=== PATIENT | male | born 2000 | race Caucasian/White ===

== ENCOUNTER 2021-06-20 14:36 | Emergency (ER) | payer OTHER ==
[~2021-06-20] VITALS: Ht 165.1 cm; Wt 53.0 kg
[2021-06-20] MEDS ORDERED: ONDANSETRON PF 4 MG/2 ML VIAL. IVP ONE ×2 (15:30→18:00)
[2021-06-20] MEDS ORDERED: IV RINGERS SOLUTION,LACTATED 1,000 ML IV ONE ×2 (15:30→18:15)
[2021-06-20] MEDS ORDERED: FAMOTIDINE 20 MG/2 ML VIAL IVP ONE (15:30)
[2021-06-20 16:18] LABS: BASO % 0 % (0-3); EOS # 0.2 x10^3/uL (0.0-0.7); EOS % 1 % (0-3); HEMATOCRIT 47.1 % (39.0-53.0); HEMOGLOBIN 15.4 g/dL (13.0-17.5); LYMPH % 7 % (24-48); MEAN CORPUSCULAR HEMOGLOBIN 30 pg (25-35); MEAN CORPUSCULAR HGB CONC 33 g/dL (31-37); MEAN CORPUSCULAR VOLUME 90 fL (79-100); MONO # 0.7 x10^3/uL (0.0-1.1); MONO % 5 % (0-9); NEUT # 11.8 x10^3uL (1.8-7.7); NEUT % 86 % (31-73); PLATELET COUNT 264 x10^3/uL (140-400); RED BLOOD COUNT 5.22 x10^6/uL (4.30-5.70); WHITE BLOOD COUNT 13.7 x10^3/uL (4.0-11.0)
[2021-06-20 16:24] LABS: CALCIUM 10.2 mg/dL (8.5-10.1); CREATININE 0.8 mg/dL (0.7-1.3); GFR 123.2; POTASSIUM 4.6 mmol/L (3.5-5.1)
[2021-06-20 16:29] LABS: ALBUMIN 4.7 g/dL (3.4-5.0); ALBUMIN/GLOBULIN RATIO 1.4 (1.0-1.7); MAGNESIUM 2.3 mg/dL (1.8-2.4); TOTAL BILIRUBIN 1.7 mg/dL (0.2-1.0)
--- NOTE | 2021-06-20 17:35 | PHYS DOC ---
Past History Additional Past Medical Histor: insomnia (JOHANNA VENTURA) Past Surgical History: No Surgical History (JOHANNA VENTURA) General Adult EDM: Chief Complaint: DIARRHEA HPI: HPI: Patient is an otherwise healthy 20-year-old male who presents with 1 day history of vomiting and diarrhea. Patient states he has had 3 episodes of emesis and at least 5 episodes of diarrhea beginning today. He denies any sick contacts or recent ingestion of new foods. Patient reports associated diffuse abdominal pain that is mild and chills. He states his girlfriend told him that while he was sleeping last night, he was cool to the touch but sweating. Patient denies measured fever, bloody emesis, bloody stools. (JOHANNA VENTURA) Review of Systems: Review of Systems: ROS negative or noncontributory except as mentioned in HPI. (JOHANNA VENTURA) Current Medications: Current Meds: Current Medications Medications (Trade) Dose Ordered Sig/Lima Start Time Stop Time Status Last Admin Dose Admin Famotidine (Pepcid Vial) 20 mg 1X ONCE 06/20/21 15:30 06/20/21 15:31 DC 06/20/21 15:30 20 MG Lactated Ringer's 1,000 ml @ 1,000 mls/hr 1X ONCE 06/20/21 15:30 06/20/21 16:29 DC 06/20/21 15:30 1,000 MLS/HR Ondansetron HCl (Zofran) 4 mg 1X ONCE 06/20/21 15:30 06/20/21 15:31 DC 06/20/21 15:44 4 MG (JOHANNA VENTURA) Allergies: Allergies: Allergies Coded Allergies Type Severity Reaction Last Updated Verified No Known Drug Allergies 06/20/21 No (JOHANNA VENTURA) Physical Exam: PE: Constitutional: Well developed, well nourished, no acute distress, non-toxic appearance. HENT: Normocephalic, atraumatic, bilateral external ears normal, oropharynx moist, nose normal. Eyes: EOMI, conjunctiva normal, no discharge. Neck: Normal range of motion, no stridor. Abdomen: Bowel sounds normal, soft, no tenderness, no masses, no pulsatile masses. Skin: Warm, dry, no erythema, no rash, good skin turgor. Extremities: No cyanosis, no clubbing, ROM intact, no edema. Neurologic: Alert and oriented x4, normal motor function, normal sensory function, and symmetrical upright gait, no focal deficits noted. (JOHANNA VENTURA) Current Patient Data: Labs: Laboratory Tests Test 06/20/21 15:42 White Blood Count 13.7 x10^3/uL (4.0-11.0) H Red Blood Count 5.22 x10^6/uL (4.30-5.70) Hemoglobin 15.4 g/dL (13.0-17.5) Hematocrit 47.1 % (39.0-53.0) Mean Corpuscular Volume 90 fL (79-100) Mean Corpuscular Hemoglobin 30 pg (25-35) Mean Corpuscular Hemoglobin Concent 33 g/dL (31-37) Red Cell Distribution Width 14.0 % (11.5-14.5) Platelet Count 264 x10^3/uL (140-400) Neutrophils (%) (Auto) 86 % (31-73) H Lymphocytes (%) (Auto) 7 % (24-48) L Monocytes (%) (Auto) 5 % (0-9) Eosinophils (%) (Auto) 1 % (0-3) Basophils (%) (Auto) 0 % (0-3) Neutrophils # (Auto) 11.8 x10^3uL (1.8-7.7) H Lymphocytes # (Auto) 1.0 x10^3/uL (1.0-4.8) Monocytes # (Auto) 0.7 x10^3/uL (0.0-1.1) Eosinophils # (Auto) 0.2 x10^3/uL (0.0-0.7) Basophils # (Auto) 0.0 x10^3/uL (0.0-0.2) Sodium Level 135 mmol/L (136-145) L Potassium Level 4.6 mmol/L (3.5-5.1) Chloride Level 102 mmol/L (98-107) Carbon Dioxide Level 25 mmol/L (21-32) Anion Gap 8 (6-14) Blood Urea Nitrogen 14 mg/dL (8-26) Creatinine 0.8 mg/dL (0.7-1.3) Estimated GFR (Cockcroft-Gault) 123.2 BUN/Creatinine Ratio 18 (6-20) Glucose Level 81 mg/dL (70-99) Calcium Level 10.2 mg/dL (8.5-10.1) H Magnesium Level 2.3 mg/dL (1.8-2.4) Total Bilirubin 1.7 mg/dL (0.2-1.0) H Aspartate Amino Transferase (AST) 23 U/L (15-37) Alanine Aminotransferase (ALT) 26 U/L (16-63) Alkaline Phosphatase 79 U/L (46-116) Total Protein 8.0 g/dL (6.4-8.2) Albumin 4.7 g/dL (3.4-5.0) Albumin/Globulin Ratio 1.4 (1.0-1.7) Lipase 302 U/L (73-393) Vital Signs: Vital Signs Date Time Temp Pulse Resp B/P (MAP) Pulse Ox O2 Delivery O2 Flow Rate FiO2 06/20/21 19:04 78 16 137/79 (98) 98 Room Air 06/20/21 14:49 98.0 85 18 141/101 (114) 98 Room Air (JOHANNA VENTURA) Heart Score: C/O Chest Pain: No (JOHANNA VENTURA) Course & Med Decision Making: Course & Med Decision Making Pertinent Labs and Imaging studies reviewed. (See chart for details) Patient is a 20-year-old male who presents with 1 day history of vomiting and diarrhea. His symptoms were well controlled here in the department with Zofran and IV fluid administration. Additionally, he is able to produce urine indicating he is not severely dehydrated requiring inpatient rehydration. Patient was provided with prescription for Zofran. Return precautions were provided. Patient understands and is agreeable to discharge plan. (JOHANNA VENTURA) Dragon Disclaimer: Dragon Disclaimer: This electronic medical record was generated, in whole or in part, using a voice recognition dictation system. (JOHANNA VENTURA) Attending Co-Sign The patient was seen and interviewed as well as examined at the bedside. The [facility] rt was reviewed. The case was discussed. Agree with the plan of care. (SOLA HERNANDEZ DO) Departure Departure: Impression: Primary Impression: Gastroenteritis Disposition: 01 HOME / SELF CARE / HOMELESS Condition: IMPROVED Referrals: PCP,UNKNOWN (PCP) Patient Instructions: Diarrhea, Mfug-gr-[id number], Nausea and Vomiting, Tean-sm-Gxhn, Viral Gastroenteritis, Hafl-xp-Ttdw Additional Instructions: EMERGENCY DEPARTMENT GENERAL DISCHARGE INSTRUCTIONS Thank you for coming to [facility] (ED) today and trusting us with you care. We trust that you had a positive experience in our Emergency Department. If you wish to speak to the department management, you may call the director at [phone]. YOUR FOLLOW UP INSTRUCTIONS ARE FOLLOWS: 1. Follow up with your primary care doctor. If you do not have a primary doctor, please ask for a resource list of physicians or clinics that may be able to assist you with follow up care. 2. The emergency provider has interpreted your imaging studies, if any were ordered. The radiology sales development specialist also reviewed them. If there is a change in the findings, you will be notified in 48 hours when at all possible. 3. If a lab test or culture has been done, your results will be reviewed and you will be notified if you need a change in treatment. 4. Follow instructions verbalized to you and refer to the printouts if needed. ADDITIONAL INSTRUCTIONS AND INFORMATION: 1. Your care today has been supervised by a physician who is specially trained in emergency care. Many problems require more than one evaluation for a comple te diagnosis and treatment. We recommend that you schedule your follow up appointment as recommended to ensure complete treatment of you illness or injury. If you are unable to obtain follow up care and continue to have a problem, or if your condition worsens, we recommend that you return to the ED. 2. We are not able to safely determine your condition over the phone nor are we able to give sound medical advice over the phone. For these safety reasons, if you call for medical advice we will ask you to come to the ED for further evaluation. 3. If you have any questions regarding these discharge instructions please call the ED at [phone]. SAFETY INFORMATION: In the interest of safety, wellness, and injury prevention; we encourage you to wear your seat belt, if you smoke; quite smoking, and we encourage family to use a protective helmet for bicycling and other sporting events that present an increased risk for head injury. IF YOUR SYMPTOMS WORSEN OR NEW SYMPTOMS DEVELOP, OR YOU HAVE CONCERNS ABOUT YOUR CONDITION; OR IF YOUR CONDITION WORSENS WHILE YOU ARE WAITING FOR YOUR FOLLOW UP APPOINTMENT; EITHER CONTACT YOUR PRIMARY CARE DOCTOR, THE PHYSICIAN WHOSE NAME AND NUMBER YOU WERE GIVEN, OR RETURN TO THE ED IMMEDIATELY. Scripts Ondansetron (ONDANSETRON ODT) 4 Mg Tab.rapdis 1 TAB PO PRN Q6-8HRS for n/v, #20 TAB Prov: JOHANNA VENTURA 06/20/21 JOHANNA VENTURA Jun 20, 2021 17:35 SOLA HERNANDEZ DO Jun 21, 2021 18:24
[2021-06-20 18:56] LABS: BACTERIA,URINE 0 /HPF (0-FEW); CLARITY,URINE CLEAR; COLOR,URINE YELLOW; GLUCOSE,URINE NEG (NEG); NITRITE,URINE NEG (NEG); RBC,URINE 0 /HPF (0-2); SQUAMOUS EPITHELIAL CELL,UR OCC /LPF; UROBILINOGEN,URINE 0.2 mg/dL (0.2 mg/dL); WBC,URINE RARE /HPF (0-4)
[2021-06-20] MEDS ORDERED: ONDA4TAB12 PO (18:58)
[2021-06-20 19:04] VITALS: BP 137/79
== END 2021-06-20 19:15 | disposition home or self-care (01) ==
LOC: ER 14:36
DX: K52.9 Noninfective gastroenteritis and colitis, unspecified (principal)
CPT/HCPCS: 36415; 80053; 81001; 83690; 83735; 85025; 96361; 96374; 96375; 96376; 99284; J2405; J3490; J7120

== ENCOUNTER 2021-07-03 02:30 | Emergency (ER) | payer OTHER ==
[~2021-07-03] VITALS: Ht 165.1 cm; Wt 54.3 kg
[~2021-07-03 02:30] MED LIST: ONDA4TAB12 PO
[2021-07-03] MEDS ORDERED: ERYTHROMYCIN 0.5% OPHTH OINTMENT 1GM TUBE. ONE (03:16)
[2021-07-03] MEDS ORDERED: GENTAMICIN 0.3% OPHTH OINTMENT 3.5GM TUBE. OU ONE (03:30)
[2021-07-03 03:34] LABS: BGAS PH 7.05 (7.35-7.46)
[2021-07-03] MEDS ORDERED: CONTRAST GIVEN. MC PRN (03:45)
[2021-07-03 03:50] VITALS: BP 162/98
--- NOTE | 2021-07-03 03:53 | RAD ---
EXAM: AP View of the chest DATE: 07/03/2021 2:58 AM INDICATION: Reason: TRAUMA / Spl. Instructions: / History: COMPARISON: No Prior FINDINGS: ET tube tip terminates approximately 3 cm above the reyna. Enteric tube is looped distally with tip projecting over the expected body of the stomach. The heart is not enlarged. Right perihilar and medial right lung base airspace opacities possibly atelectasis, contusion or cons olidative process such as pneumonia. No pleural effusion or pneumothorax. IMPRESSION: Right perihilar and medial right lung base airspace opacities possibly atelectasis, contusion or cons olidative process such as pneumonia. Electronically signed by: David Tee MD (07/03/2021 3:50 AM) SARTHAK
--- NOTE | 2021-07-03 03:58 | PHYS DOC ---
Past History Additional Past Medical Histor: insomnia Past Surgical History: No Surgical History Alcohol Use: None General Adult EDM: Chief Complaint: CPR/FULL ARREST HPI: HPI: - Pt. non-responsive.- ".. We had an argument earlier...I am his girl friend... We are both from [place].... I went to take a shower... and when I came out... he was hanging in the closet... He was all blue in his face and ears.. I got the belt off him.. and put him on the floor.. and started CPR.. and call the ambulance...He had some problems recently with depression and insomnia.. .. was taking trazodone for sleep.. He just had recent complained of stomach flu last couple days.. 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 Pt. was unobserved for 20 min. by girl friend. Pt. was coded by paramedics. IO Lt tibia. Intubated at scene. Pt. loss air way in move, then oral intubation tube placed. Pt. had CPR resuscitation in route with 3 epi given in field. Pt. had short return of pulse, but again asystole. Pt. developed rhythm on monitor while CPR was continued. Eventually patient did develop a pulse after 2 epinephrines IV. Patient been intubated with inline stabilization by nursing. . Patient past medical hx. insomnia-took trazodone for sleep. Sgt. of Pt. notified at [address] [facility] Jordyn [phone] labs order, CT Head, Neck, Chest pending. CXR shows Rt. aspiration, edema, adequate ET and OG placement. Father notified at . Mother could not be reached t . Father stated he would try to reach her. Pt. girl friend is Jacinto Shahid . Review of Systems: Review of Systems: Unable to complete due presentation Family History: Family History: Not currently available Current Medications: Current Meds: Current Medications Medications (Trade) Dose Ordered Sig/Lima Start Time Stop Time Status Last Admin Dose Admin Erythromycin (Romycin) 0.25 inch 1X ONCE 07/03/21 03:30 07/03/21 03:31 UNV Gentamicin Sulfate (Gentak) 0.25 inch 1X ONCE 07/03/21 03:30 07/03/21 03:31 Lactated Ringer's 1,000 ml @ 160 mls/hr Q6H15M 07/03/21 03:30 07/03/21 09:44 UNV Allergies: Allergies: Allergies Coded Allergies Type Severity Reaction Last Updated Verified No Known Drug Allergies 06/20/21 No Physical Exam: PE: Constitutional: Well developed, well nourished,in acute distress HENT: Normocephalic,, bilateral external ears normal, oropharynx moist, oral bleeding, nose normal. Bleeding from esophagus and trachea area.. Cords extremely swollen. . Appeared to have aspirated. Eyes ; Fixed and dilated Neck: Ligature flores around the neck. Swollen neck. Trachea did appear however midline. No step-offs on posterior neck. Cardiovascular: Tachycardia heart rate regular rhythm, no murmur [] Lungs & Thorax: Bilateral breath sounds coarse breath sounds more prevalent on right Abdomen: Mild distention, no bowel sounds. Circumcised. Skin: Cyanosis peripherally, pale. Excoriations on left thigh. Excoriations both shoulders Back: No obvious injury Extremities:no edema. Blood under bilateral nails and on fingers Neurologic: Nonresponsive. Bilateral disc edema. EKG: EKG: My interpretation EKG shows a sinus tachycardia 118 bpm. Does have some right axis findings but no findings of acute STEMI of contralateral changes. Time of EKG is 325 hours [] Radiology/Procedures: Radiology/Procedures: IMAGING REPORT Signed PATIENT: CESAR VARGAS ACCOUNT: [id number] : 2000 LOCATION: ER AGE: 20 SEX: M EXAM STATUS: REG ER ORD. PHYSICIAN: ALEX ZARCO MD REASON: TRAUMA PROCEDURE: CT HEAD AND CERVICAL SPINE WO EXAM: CT HEAD WITHOUT IV CONTRAST CLINICAL HISTORY: Reason: TRAUMA / Spl. Instructions: / History: COMPARISON: None. TECHNIQUE: Routine CT of the head without contrast. Soft tissues and bone windows were reviewed. PQRS compliance statement - One or more of the following individualized dose reduction techniques were utilized for this study: 1. Automated exposure control 2. Adjustment of the mA and/or kV according to patient size 3. Use of iterative reconstruction technique FINDINGS: Findings of cerebral edema with limited differentiation of the carlos-white matter and basal ganglia may be seen along the spectrum of hypoxic-ischemic injury. Near-complete effacement of the ventricular system. There is crowding of the basilar cisterns. High density of the cerebral arteries and dural venous sinuses possibly artifactual although thrombosis could have this appearance. The calvarium demonstrates no evidence of fracture or focal lesion. There is normal aeration of the visualized paranasal sinuses and mastoid air cells. The visualized portions of the orbits are normal. IMPRESSION: Changes of cerebral edema likely from hypoxic ischemic injury. High density within the cerebral arteries and venous sinuses, likely artifactual but can also be seen with associated thrombosis. EXAM: CT CERVICAL SPINE WITHOUT IV CONTRAST CLINICAL HISTORY: Reason: TRAUMA / Spl. Instructions: / History: COMPARISON: None available. TECHNIQUE: Helical CT of the cervical spine was performed. Axial, coronal and sagittal reformatted images were also performed. PQRS compliance statement - One or more of the following individualized dose reduction techniques were utilized for this study: 1. Automated exposure control 2. Adjustment of the mA and/or kV according to patient size 3. Use of iterative reconstruction technique FINDINGS: Vertebral body heights are preserved. No spondylolisthesis. Intervertebral disc heights are preserved. Please see dedicated CT chest findings for lung findings. IMPRESSION: No acute cervical spine fracture or subluxation Findings discussed with ALEX ZARCO MD at 07/03/2021 4:32 AM. FOR INTERNAL CODING PURPOSES RESULT CODE: (C) Electronically signed by: David Alonzo MD (07/03/2021 4:39 AM) [id number] [address] [place] [id number] IMAGING REPORT Signed PATIENT: CESAR VARGAS ACCOUNT: [id number] : 2000 LOCATION: ER AGE: 20 SEX: M EXAM STATUS: REG ER ORD. PHYSICIAN: ALEX ZARCO MD REASON: HANGING PROCEDURE: CT CHEST WO/W CONTRAST EXAM: CT Chest with IV contrast CLINICAL HISTORY: Reason: HANGING. Shortness of air. Abnormality in prior chest radiograph. COMPARISON: 07/03/2021 TECHNIQUE: CT of the chest following the administration of intravenous contrast. Axial, coronal and sagittal reformatted images were generated. ---PQRS compliance statement - One or more of the following individualized dose reduction techniques were utilized for this study: 1. Automated exposure control 2. Adjustment of the mA and/or kV according to patient size 3. Use of iterative reconstruction technique--- FINDINGS: CHEST: ET tube tip terminates within the distal thoracic trachea. Enteric tube tip is not seen but extends at least to the body of the stomach. Heart is not enlarged. No pericardial effusion. No pleural effusion. No pneumothorax. Anterior mediastinal soft tissue density likely thymus. Airspace opacities in the perihilar region and lower lobes bilaterally suspicious for aspiration. No mediastinal or hilar lymphadenopathy. No axillary lymphadenopathy. Visualized Upper abdomen: Grossly unremarkable Bones: Trace cortical offset at the anterior aspect of the left fourth fifth and sixth rib suspicious for age-indeterminate fracture, possibly chronic. IMPRESSION: 1. Perihilar and lower lobe airspace opacities suspicious for aspiration. Consolidative process such as pneumonia could also have this appearance. 2. Trace cortical offset at the anterior aspect of the left fourth, fifth and sixth rib suspicious for age-indeterminate fracture, possibly chronic. Electronically signed by: David Alonzo MD (07/03/2021 4:42 AM) [facility] DICTATED AND SIGNED BY: DAVID ALONZO MD DATE: 07/03/21 0439 CC: ALEX ZARCO MD; PCP,UNKNOWN ~ [][place] [address] IMAGING REPORT Signed PATIENT: CESAR VARGAS ACCOUNT: [id number] : 2000 LOCATION: ER AGE: 20 SEX: M EXAM STATUS: REG ER ORD. PHYSICIAN: ALEX ZARCO MD REASON: TRAUMA PROCEDURE: CHEST AP ONLY EXAM: AP View of the chest DATE: 07/03/2021 2:58 AM INDICATION: Reason: TRAUMA / Spl. Instructions: / History: COMPARISON: No Prior FINDINGS: ET tube tip terminates approximately 3 cm above the reyna. Enteric tube is looped distally with tip projecting over the expected body of the stomach. The heart is not enlarged. Right perihilar and medial right lung base airspace opacities possibly atelectasis, contusion or consolidative process such as pneumonia. No pleural effusion or pneumothorax. IMPRESSION: Right perihilar and medial right lung base airspace opacities possibly atelectasis, contusion or consolidative process such as pneumonia. Electronically signed by: David Alonzo MD (07/03/2021 3:50 AM) [facility] DICTATED AND SIGNED BY: DAVID ALONZO MD DATE: 07/03/21348 CC: ALEX ZARCO MD; PCP,UNKNOWN ~ Heart Score: C/O Chest Pain: N/A HEART Score for Chest Pain: HEART Score for Chest Pain Response (Comments) Value History Slighlty/Non-Suspicious 0 ECG Normal 0 Age < 45 0 Risk Factors 1 or 2 Risk Factors 1 Troponin >3 x Normal Limit 2 Total 3 Risk Factors: Risk Factors: DM, Current or recent (<one month) smoker, HTN, HLP, family history of CAD, obesity. Risk Scores: Score 0 - 3: 2.5% MACE over next 6 weeks - Discharge Home Score 4 - 6: 20.3% MACE over next 6 weeks - Admit for Clinical Observation Score 7 - 10: 72.7% MACE over next 6 weeks - Early Invasive Strategies Course & Med Decision Making: Course & Med Decision Making Pertinent Labs and Imaging studies reviewed. (See chart for details) Procedure note-emergent intubation-protection of airway. And OG placement- Patient did not require sedation because he was nonresponsive- Mallampati score was 1, but limited movement because of the potential neck injury. Airway obstructed by bleeding and aspiration. Inline stabilization with nursing. Oral airway suction. Oral airway removed. Airway suctioned. 1 attempt with a 7.5 tube would not pass between edematous cords with videoscope. Patient reventilated attempt with a 7.0 tube -was able to pass tube . Had CO2 change. Breath sounds bilaterally no breath sounds over stomach. Good saturation. OG placed with return of gastric contents and position verified by auscultation. Endotracheal tube and NG placement verified by chest x-ray. Stomach decompressed with suction. Hard collar to replace soft collar after stabilization of air way. Critical care 120 minutes Discussed pt. presentation, testing and tx. plan with Dr. Martinez. Will accept.at ICU- [facility] Impression: 1. Hanging 2. Cardiopulmonary Arrest-- Suspect Anoxia 3. Scratch Flores both shoulder and Lt Thight 4. Leukocytosis 19.7 5. Aspiration pneumonitis- 6. Elevated Trop. 417 7. Elevated Glucose 451 8. Elevated AST 97 and ALT 105 9. Cerebral Edema 10Metabolic Acidosis 11Morbid Prognosis See Code sheet for details. [] Dragon Disclaimer: Dragon Disclaimer: This electronic medical record was generated, in whole or in part, using a voice recognition dictation system. Departure Departure: Referrals: PCP,UNKNOWN (PCP) Brandon Disclaimer This chart was dictated in whole or in part using Voice Recognition software in a busy, high-work load, and often noisy Emergency Department environment. It may contain unintended and wholly unrecognized errors or omissions. ALEX ZARCO MD Jul 03, 2021 03:58
[2021-07-03] MEDS ORDERED: IOHEXOL 350 MG/ML 100 ML VIAL. IV ONE (04:00)
[2021-07-03] MEDS ORDERED: EPINEPHrine SYRINGE 1 MG/10 ML SYRINGE. IV ONE ×2 (04:00)
[2021-07-03] MEDS ORDERED: ERYTHROMYCIN 0.5% OPHTH OINTMENT 1GM TUBE. OU ONE (04:00)
[2021-07-03] MEDS ORDERED: EPINEPHrine SYRINGE 1 MG/10 ML SYRINGE. ONE (04:00)
[2021-07-03] MEDS ORDERED: IV RINGERS SOLUTION,LACTATED 1,000 ML IV ONE (04:00)
[2021-07-03] MEDS ORDERED: IV RINGERS SOLUTION,LACTATED 1,000 ML IV SCH ×2 (04:00→06:15)
[2021-07-03 04:03] LABS: BASO # 0.1 x10^3/uL (0.0-0.2); BASO % 1 % (0-3); EOS # 0.3 x10^3/uL (0.0-0.7); EOS % 2 % (0-3); HEMATOCRIT 44.1 % (39.0-53.0); HEMOGLOBIN 13.1 g/dL (13.0-17.5); LYMPH # 6.1 x10^3/uL (1.0-4.8); LYMPH % 31 % (24-48); MEAN CORPUSCULAR HEMOGLOBIN 30 pg (25-35); MEAN CORPUSCULAR HGB CONC 30 g/dL (31-37); MEAN CORPUSCULAR VOLUME 100 fL (79-100); MONO # 0.4 x10^3/uL (0.0-1.1); MONO % 2 % (0-9); NEUT # 12.8 x10^3uL (1.8-7.7); NEUT % 65 % (31-73); PLATELET COUNT 239 x10^3/uL (140-400); RED BLOOD COUNT 4.42 x10^6/uL (4.30-5.70); RED CELL DISTRIBUTION WIDTH 14.5 % (11.5-14.5); WHITE BLOOD COUNT 19.7 x10^3/uL (4.0-11.0)
[2021-07-03 04:33] LABS: ALBUMIN 3.4 g/dL (3.4-5.0); CALCIUM 9.4 mg/dL (8.5-10.1); CREATININE 1.7 mg/dL (0.7-1.3); DIRECT BILIRUBIN 0.1 mg/dL (0.0-0.2); GFR 51.6; MAGNESIUM 2.5 mg/dL (1.8-2.4); POTASSIUM 4.8 mmol/L (3.5-5.1); TOTAL BILIRUBIN 0.5 mg/dL (0.2-1.0); TOTAL PROTEIN 6.1 g/dL (6.4-8.2)
[2021-07-03 04:34] LABS: % BANDS 1 % (0-9); % EOS 1 % (0-5); % LYMPHS 31 % (24-48); % MONOS 3 % (0-10); % SEGS 64 % (35-66)
[2021-07-03 04:36] LABS: ANISOCYTOSIS PRESENT; PLT ESTIMATE ADEQUATE (ADEQUATE)
--- NOTE | 2021-07-03 04:42 | RAD ---
EXAM: CT HEAD WITHOUT IV CONTRAST CLINICAL HISTORY: Reason: TRAUMA / Spl. Instructions: / History: COMPARISON: None. TECHNIQUE: Routine CT of the head without contrast. Soft tissues and bone windows were reviewed. PQRS compliance statement - One or more of the following individualized dose reduction techniques wer e utilized for this study: 1. Automated exposure control 2. Adjustment of the mA and/or kV according to patient size 3. Use of iterative reconstruction technique FINDINGS: Findings of cerebral edema with limited differentiation of the carlos-white matter and basal ganglia ma y be seen along the spectrum of hypoxic-ischemic injury. Near-complete effacement of the ventricular system. There is crowding of the basilar cisterns. High density of the cerebral arteries and dural venous sinuses possibly artifactual although thrombos is could have this appearance. The calvarium demonstrates no evidence of fracture or focal lesion. There is normal aeration of the visualized paranasal sinuses and mastoid air cells. The visualized portions of the orbits are normal. IMPRESSION: Changes of cerebral edema likely from hypoxic ischemic injury. High density within the cerebral arteries and venous sinuses, likely artifactual but can also be seen with associated thrombosis. EXAM: CT CERVICAL SPINE WITHOUT IV CONTRAST CLINICAL HISTORY: Reason: TRAUMA / Spl. Instructions: / History: COMPARISON: None available. TECHNIQUE: Helical CT of the cervical spine was performed. Axial, coronal and sagittal reformatted im ages were also performed. PQRS compliance statement - One or more of the following individualized dose reduction techniques wer e utilized for this study: 1. Automated exposure control 2. Adjustment of the mA and/or kV according to patient size 3. Use of iterative reconstruction technique FINDINGS: Vertebral body heights are preserved. No spondylolisthesis. Intervertebral disc heights are preserved. Please see dedicated CT chest findings for lung findings. IMPRESSION: No acute cervical spine fracture or subluxation Findings discussed with ALEX ZARCO MD at 07/03/2021 4:32 AM. FOR INTERNAL CODING PURPOSES RESULT CODE: (C) Electronically signed by: David Tee MD (07/03/2021 4:39 AM) [place]
--- NOTE | 2021-07-03 04:45 | RAD ---
EXAM: CT Chest with IV contrast CLINICAL HISTORY: Reason: HANGING. Shortness of air. Abnormality in prior chest radiograph. COMPARISON: 07/03/2021 TECHNIQUE: CT of the chest following the administration of intravenous contrast. Axial, coronal and s agittal reformatted images were generated. ---PQRS compliance statement - One or more of the following individualized dose reduction techniques were utilized for this study: 1. Automated exposure control 2. Adjustment of the mA and/or kV according to patient size 3. Use of iterative reconstruction technique--- FINDINGS: CHEST: ET tube tip terminates within the distal thoracic trachea. Enteric tube tip is not seen but extends a t least to the body of the stomach. Heart is not enlarged. No pericardial effusion. No pleural effusion. No pneumothorax. Anterior mediastinal soft tissue density likely thymus. Airspace opacities in the perihilar region an d lower lobes bilaterally suspicious for aspiration. No mediastinal or hilar lymphadenopathy. No axil patrizia lymphadenopathy. Visualized Upper abdomen: Grossly unremarkable Bones: Trace cortical offset at the anterior aspect of the left fourth fifth and sixth rib suspicious for age-indeterminate fracture, possibly chronic. IMPRESSION: 1. Perihilar and lower lobe airspace opacities suspicious for aspiration. Consolidative process such as pneumonia could also have this appearance. 2. Trace cortical offset at the anterior aspect of the left fourth, fifth and sixth rib suspicious f or age-indeterminate fracture, possibly chronic. Electronically signed by: David Tee MD (07/03/2021 4:42 AM) [facility]
[2021-07-03 05:03] LABS: INFLUENZA A PATIENT NEGATIVE (NEGATIVE); INFLUENZA B PATIENT NEGATIVE (NEGATIVE)
[2021-07-03 05:15] LABS: BARBITURATES NEG (NEG); BENZODIAZEPINES NEG (NEG); CANNABINOIDS NEG (NEG); COCAINE NEG (NEG); METHADONE NEG (NEG); OPIATES NEG (NEG); PHENCYCLIDINE NEG (NEG)
[2021-07-03 05:16] LABS: BACTERIA,URINE 0 /HPF (0-FEW); CLARITY,URINE CLEAR; COLOR,URINE YELLOW; GLUCOSE,URINE NEG (NEG); NITRITE,URINE NEG (NEG); RBC,URINE OCC /HPF (0-2); UROBILINOGEN,URINE 0.2 mg/dL (0.2 mg/dL); WBC,URINE OCC /HPF (0-4)
[2021-07-03 05:19] LABS: AMPHETAMINE/METHAMPHETAMINE NEG (NEG)
[2021-07-03 05:25] LABS: BURR CELLS FEW
[2021-07-03] MEDS ORDERED: INSULIN REGULAR 100 UNIT/ML 3ML VIAL. IV ONE (05:30)
--- NOTE | 2021-07-03 06:13 | EKG ---
[facility] ED [facility] [address] [place] [id number] Test Date: 2021-07-03 Test Time: 03:25:22 Pat Name: CESAR VARGAS Department: Room: Gender: M [employer]: : [id number] Requested By: ALEX ZARCO Order Number: [id number] Reading MD: Gage Negrete Measurements Intervals [place] Rate: 118 P: 66 TX: 140 QRS: 101 QRSD: 94 T: 17 QT: 344 QTc: 485 Interpretive Statements SINUS TACHYCARDIA Electronically Signed On 07-06-2021 13:45:18 CDT by Gage Negrete
== END 2021-07-03 05:40 | disposition short-term general hospital (02) ==
LOC: ER 02:30
DX: U07.1 COVID-19 (principal); T71.162A Asphyxiation due to hanging, intentional self-harm, initial encounter; S40.212A Abrasion of left shoulder, initial encounter; S40.211A Abrasion of right shoulder, initial encounter; S70.312A Abrasion, left thigh, initial encounter; I46.9 Cardiac arrest, cause unspecified; D72.829 Elevated white blood cell count, unspecified; J69.0 Pneumonitis due to inhalation of food and vomit; R77.8 Other specified abnormalities of plasma proteins; E87.2 Acidosis; G93.6 Cerebral edema; X58.XXXA Exposure to other specified factors, initial encounter; Y93.89 Activity, other specified; Y92.89 Other specified places as the place of occurrence of the external cause; Y99.8 Other external cause status
CPT/HCPCS: 31500; 36415; 36600; 51702; 70450; 71045; 71270; 72125; 80048; 80076; 80307; 81001; 82550; 82803; 82947; 83690; 83735; 83880; 84443; 84484; 85007; 85025; 85379; 85610; 85730; 87428; 92950; 93005; 96361; 96374; 99291; 99292; C9803; J0171; J1815; J7120; U0003; 94002